=== PATIENT | male | born 1995 ===

== ENCOUNTER 2018-11-11 07:57 | Emergency (ER) | payer SELFPAY ==
[2018-11-11] MEDS ORDERED: DIPHENHYDRAMINE 50 MG/ML VIAL ONE (08:08)
[2018-11-11] MEDS ORDERED: dexAMETHasone 10 MG/ML VIAL ONE (08:09)
--- NOTE | 2018-11-11 08:23 | ER ---
Nurse's Notes [facility] Name: Hardik Boswell Age: 23 yrs Sex: Male : 1995 Arrival Date: 11/11/2018 Time: 07:59 Bed 19 Private MD: Diagnosis: Conjunctivitis-Chemical Presentation: 11/11 08:01 Presenting complaint: Patient states: Redness, irritation, watering and swelling to ss bilateral eyes/ eyelids that began yesterday after getting new hair gel in bilateral eyes. Transition of care: patient was not received from another setting of care. Onset of symptoms was November 10, 2018. Risk Assessment: Do you want to hurt yourself or someone else? Patient reports no desire to harm self or others. Initial Sepsis Screen: Does the patient meet any 2 criteria? No. Patient's initial sepsis screen is negative. Does the patient have a suspected source of infection? No. Patient's initial sepsis screen is negative. Care prior to arrival: None. 08:01 Method Of Arrival: EMS: [facility] 08:01 Acuity: YOCASTA 3 ss Historical: - Allergies: 08:00 No Known Allergies; ss - Home Meds: 08:00 None [Active]; ss - PMHx: 08:00 None; ss - PSHx: 08:00 None; ss - Immunization history:: Adult Immunizations up to date. - Social history:: Smoking status: Patient/guardian denies using tobacco. - Ebola Screening: : Patient denies exposure to infectious person Patient denies travel to an Ebola-affected area in the 21 days before illness onset. - Family history:: not pertinent. - Hospitalizations: : No recent hospitalization is reported. Screenin:18 Abuse screen: Denies threats or abuse. Nutritional screening: No deficits noted. em Tuberculosis screening: No symptoms or risk factors identified. Fall Risk None identified. Assessment: 08:10 General: Appears in no apparent distress. uncomfortable, Behavior is calm, cooperative, em Denies fever. Pain: Denies pain. Neuro: Level of Consciousness is awake, alert, obeys commands, Oriented to person, place, time, situation. Cardiovascular: Capillary refill < 3 seconds Patient's skin is warm and dry. Respiratory: Airway is patent Respiratory effort is even, unlabored, Respiratory pattern is regular, symmetrical, Breath sounds are clear bilaterally. Denies shortness of breath. GI: Patient currently denies nausea, vomiting. EENT: Eyes are tearing on right eye and left eye Sclera/Cornea are reddened in right eye and left eye Nares Oral mucosa is moist. Throat is clear is pink Reports blurred vision nasal congestion Denies difficulty swallowing. Derm: Skin is intact, is healthy with good turgor, Skin is pink, warm \T\ dry. Rash noted that is urticaria, on face and neck. Musculoskeletal: Capillary refill < 3 seconds, Range of motion: intact in all extremities. 08:15 Reassessment: The previous assessment is accurate, call light remains within reach. ss 08:30 Reassessment: reports pain in eyes, pt rubbing eyes, given ice pack to place on em eyes,provider notified, new medication orders received. 08:45 Reassessment: Patient appears in no apparent distress at this time. Patient and/or em family updated on plan of care and expected duration. Pain level reassessed. Patient is alert, oriented x 3, equal unlabored respirations, skin warm/dry/pink. pending transportation, symptoms improved. 10:03 Reassessment: Patient appears in no apparent distress at this time. Patient and/or em family updated on plan of care and expected duration. Pain level reassessed. Patient is alert, oriented x 3, equal unlabored respirations, skin warm/dry/pink. Patient states feeling better. Patient states symptoms have improved. Vital Signs: 08:00 Pulse 72; Resp 18; Temp 98.0(TE); Pulse Ox 100% on R/A; Weight 99.79 kg; Height 5 ft. ss 11 in. (180.34 cm); 08:10 BP 117 / 74; em 08:00 Body Mass Index 30.68 (99.79 kg, 180.34 cm) ED Course: 07:59 Patient arrived in ED. ss 07:59 Rick Crain MD is Attending Physician. rn 08:00 Arm band placed on right wrist. ss 08:03 Triage completed. ss 08:05 Derek Thurston LVN is Primary Nurse. em 08:18 Patient has correct armband on for positive identification. Bed in low position. Call em light in reach. Pulse ox on. NIBP on. 09:03 No provider procedures requiring assistance completed. Patient did not have IV access em during this emergency room visit. Administered Medications: 08:12 Drug: Decadron 10 mg Route: IM; Site: left deltoid; em 08:34 Follow up: Response: No adverse reaction em 08:12 Drug: Benadryl 25 mg Route: IM; Site: right deltoid; em 08:34 Follow up: Response: No adverse reaction em 08:34 Drug: Tetracaine Drops 0.5 % 1 drops Route: Ophthalmic; Site: both eyes; em 08:44 Follow up: Response: No adverse reaction; Pain is decreased em Outcome: 08:23 Discharge ordered by . rn 10:02 Discharged to home ambulatory. em 10:02 Condition: good 10:02 Discharge instructions given to patient, Instructed on discharge instructions, follow up and referral plans. medication usage, Demonstrated understanding of instructions, follow-up care, medications, Prescriptions given X 2. 10:03 Patient left the ED. em Signatures: Derek Thurston, AGRICULTURAL AND FORESTRY SUPERVISOR AGRICULTURAL AND FORESTRY SUPERVISOR em Rick Crain MD MD rn Smirch, Shelby, RN RN
--- NOTE | 2018-11-11 08:24 | EDPHYS ---
Physician Documentation [facility] Name: Hardik Boswell Age: 23 yrs Sex: Male : 1995 Arrival Date: 11/11/2018 Time: 07:59 Bed 19 Private MD: ED Physician Rick Crain HPI: 11/11 08:00 This 23 yrs old Male presents to ER via Unassigned with complaints of Eye rn Problem, Rash. 08:00 The patient is experiencing blurred vision, burning, tearing, The patient sustained to rn both eyes, caused by hair gel. Onset: The symptoms/episode began/occurred yesterday. Duration: the symptoms are continuous. Aggravated by nothing. Alleviated by nothing. Severity of symptoms: At their worst the symptoms were moderate in the emergency department the symptoms are unchanged. The patient has not experienced similar symptoms in the past. Reports used new hair gel yesterday morning, went to work and began to sweat, got some in his eyes. Denies other injury at work, no chemical splash or direct trauma. Reports eyes have been swollen and clear drainage, no trouble breathing or oral swelling. No rash anywhere else on body. . Historical: - Allergies: 08:00 No Known Allergies; ss - Home Meds: 08:00 None [Active]; ss - PMHx: 08:00 None; ss - PSHx: 08:00 None; ss - Immunization history:: Adult Immunizations up to date. - Social history:: Smoking status: Patient/guardian denies using tobacco. - Ebola Screening: : Patient denies exposure to infectious person Patient denies travel to an Ebola-affected area in the 21 days before illness onset. - Family history:: not pertinent. - Hospitalizations: : No recent hospitalization is reported. ROS: 08:00 Constitutional: Negative for fever, chills, and weight loss, Eyes: + eye swelling and rn redness. ENT: Negative for injury, pain, and discharge, Cardiovascular: Negative for chest pain, palpitations, and edema, Respiratory: Negative for shortness of breath, cough, wheezing, and pleuritic chest pain, Abdomen/GI: Negative for abdominal pain, nausea, vomiting, diarrhea, and constipation, MS/Extremity: Negative for injury and deformity, Skin: Negative for injury, rash, and discoloration, Neuro: Negative for headache, weakness, numbness, tingling, and seizure. Exam: 08:00 Constitutional: This is a well developed, well nourished patient who is awake, alert, rn and in no acute distress. Head/Face: Normocephalic, atraumatic. Eyes: + erythema and swelling of conjunctiva and upper/lower lids, with clear drainage, no corneal defects appreciated, no foreign bodies. EOMI. ENT: NO oral swelling or lesions Respiratory: No increased work of breathing, no retractions or nasal flaring. Skin: Warm, dry with normal turgor. Normal color with no rashes, no lesions, and no evidence of cellulitis. MS/ Extremity: Pulses equal, no cyanosis. Neurovascular intact. Full, normal range of motion. Equal circumference. Neuro: Awake and alert, GCS 15, oriented to person, place, time, and situation. Cranial nerves II-XII grossly intact. Motor strength 5/5 in all extremities. Sensory grossly intact. Cerebellar exam normal. Normal gait. Vital Signs: 08:00 Pulse 72; Resp 18; Temp 98.0(TE); Pulse Ox 100% on R/A; Weight 99.79 kg; Height 5 ft. ss 11 in. (180.34 cm); 08:10 BP 117 / 74; em 08:00 Body Mass Index 30.68 (99.79 kg, 180.34 cm) ss MDM: 08:00 Patient medically screened. rn 08:21 Differential diagnosis: Chemical conjunctivitis in Allergic conjunctivitis in. Data rn reviewed: vital signs, nurses notes, and as a result, I will discharge patient. Counseling: I had a detailed discussion with the patient and/or guardian regarding: the historical points, exam findings, and any diagnostic results supporting the discharge/admit diagnosis, the need for outpatient follow up, to return to the emergency department if symptoms worsen or persist or if there are any questions or concerns that arise at home. Special discussion: I discussed with the patient/guardian in detail that at this point there is no indication for admission to the hospital. It is understood, however, that if the symptoms persist or worsen the patient needs to return immediately for re-evaluation. Based on the history and exam findings, there is no indication for further emergent testing or inpatient evaluation. I discussed with the patient/guardian the need to see the opthamologist for further evaluation of the symptoms. Administered Medications: 08:12 Drug: Decadron 10 mg Route: IM; Site: left deltoid; em 08:34 Follow up: Response: No adverse reaction em 08:12 Drug: Benadryl 25 mg Route: IM; Site: right deltoid; em 08:34 Follow up: Response: No adverse reaction em 08:34 Drug: Tetracaine Drops 0.5 % 1 drops Route: Ophthalmic; Site: both eyes; em 08:44 Follow up: Response: No adverse reaction; Pain is decreased em Disposition: 11/11/18 08:23 Discharged to Home. Impression: Conjunctivitis - Chemical. - Condition is Stable. - Discharge Instructions: Chemical Conjunctivitis, Adult. - Prescriptions for Prednisone 20 mg Oral Tablet - take 3 tablet by ORAL route once daily for 5 days; 15 tablet. Erythromycin 5 mg/gram (0.5 %) Ophthalmic Ointment - apply 1 centimeter by OPHTHALMIC route 2-3 times daily for 7 days; 1 tube. - Medication Reconciliation Form, Thank You Letter, Antibiotic Education, Prescription Opioid Use form. - Follow up: Private Physician; When: As needed; Reason: Recheck today's complaints, Re-evaluation by your physician. - Problem is new. - Symptoms are unchanged. Signatures: Derek Thurston, HOSPITAL ORDERLY HOSPITAL ORDERLY em Rick Crain MD MD rn [facility] RN RN Corrections: (The following items were deleted from the chart) 10:03 08:23 11/11/2018 08:23 Discharged to Home. Impression: Conjunctivitis - Chemical. em Condition is Stable. Forms are Medication Reconciliation Form, Thank You Letter, Antibiotic Education, Prescription Opioid Use. Follow up: Private Physician; When: As needed; Reason: Recheck today's complaints, Re-evaluation by your physician. Problem is new. Symptoms are unchanged. rn
[2018-11-11] MEDS ORDERED: TETRACAINE HCL 0.5% 4ML OPTH ONE (08:31)
[2018-11-11 10:08] VITALS: TEMP 98; O2SAT 100
[2018-11-11 10:09] VITALS: BP 117/74
== END 2018-11-11 10:03 | disposition home or self-care (01) ==
LOC: ER 07:57
DX: H10.213 Acute toxic conjunctivitis, bilateral (principal); T50.995A Adverse effect of other drugs, medicaments and biological substances, initial encounter; Y92.9 Unspecified place or not applicable
CPT/HCPCS: 96372; 99284; J1100